=== PATIENT | female | born 1960 | race Caucasian/White ===

== ENCOUNTER 2016-07-06 23:56 | Emergency (ER) | payer OTHER ==
[~2016-07-06] VITALS: Ht 160 cm; Wt 77.8 kg
[~2016-07-06 23:56] MED LIST: B-CO1CAP3; CHOL1000; DULO60CA44 PO; FISH1CAP3; PRT/20 PO; REDPOW
[2016-07-06 23:59] VITALS: TEMP 37.5; Ht 160 cm; Wt 77.8 kg
[2016-07-07] MEDS ORDERED: HYDROmorphone INJ 1 MG/ML SYR IV STA (00:32)
[2016-07-07] MEDS ORDERED: SODIUM CHLORIDE 0.9% 1000ML 1,000 ML IV STA (00:32)
[2016-07-07] MEDS ORDERED: ONDANSETRON INJ 2 MG/ML 2 ML VIAL IV STA (00:32)
--- NOTE | 2016-07-07 00:36 | EMERGENCY ROOM VISIT NOTE ---
History Report prepared by Scribe: Kyra Coffey Under the Supervision of: Dr. Jose Enrique Castro M.D. First contact with patient: 00:22 Chief Complaint: ABDOMINAL PAIN Stated Complaint: ABD PAIN History of Present Illness The patient is a 55 year old female who presents to the Emergency Room with complaints of persistent abdominal pain for the past several days. She is accompanied by her . She rates her discomfort as a 10/10 and states she has not taken any medication for her pain yet. She reports she underwent a cholecystectomy about 1 year ago and states her current pain feels similar to her previous gallbladder attacks. She denies any black or bloody stools but does admit to some recent mild diarrhea. She also complains of a headache and nausea. She has not vomited. She denies any recent fevers or rashes. Source of History: patient Onset: past several days Position: abdomen Symptom Intensity: 10/10 Timing: other (persistent) Associated Symptoms: + diarrhea, + headache, + nausea, No fevers, No hematochezia, No melena, No rash, No vomiting Review of Systems See HPI for pertinent positives & negatives. A total of 10 systems reviewed and were otherwise negative. Past Medical & Surgical Surgical Problems: (1) History of cholecystectomy Social History Smoking Status: Never Smoker Alcohol Use: occasionally Drug Use: none Marital Status: Housing Status: lives with family Occupation Status: employed Current/Historical Medications Scheduled Ondasetron Odt (Zofran Odt), 4-8 MG SL Q6H Pantoprazole (Protonix), 20 MG PO DAILY Allergies Coded Allergies: No Known Allergies (Unverified , 07/07/16) Physical Exam Vital Signs Date Time Temp Pulse Resp B/P Pulse Ox O2 Delivery O2 Flow Rate FiO2 07/07/16 02:01 84 18 132/74 96 Room Air 07/06/16 23:59 37.5 112 20 152/119 96 Room Air Physical Exam GENERAL: Patient is uncomfortable appearing and in moderate distress. HEENT: No acute trauma, normocephalic atraumatic, mucous membranes moist, no nasal congestion, no scleral icterus. NECK: No stridor, no adenopathy, no meningismus, trachea is midline. LUNGS: No dyspnea. Clear to auscultation and equal bilaterally. No wheeze, no rhonchi. HEART: Regular rate and rhythm. No murmurs, rubs, gallops appreciated. ABDOMEN: Soft, moderate RUQ tenderness to palpation, bowel sounds positive, no masses appreciated, no peritonitis. BACK: No midline tenderness, no CVA tenderness EXTREMITIES: Normal motion all extremities, no cyanosis, no edema. NEUROLOGIC: Alert and oriented, no acute motor or sensory deficits, no focal weakness, cranial nerves grossly intact. SKIN: No rash, no jaundice, no diaphoresis. Medical Decision & Procedures ER Provider Diagnostic Interpretation: This CT scan was reviewed and interpreted by the radiologist and reviewed by myself. CT ABDOMEN & PELVIS Fluid with nondistended stomach and bowel without wall thickening or surrounding inflammation is non specific and may be normal but can also be seen with gastroenteritis in the right clinical setting. No bowel obstruction, no appendicitis or inflammatory changes of bowel. Pancreas is unremarkable. Prior cholecystectomy. No renal calculi. No hydronephrosis. No free air or free fluid. Radiologist: Dr. Austin Sanchez MD Laboratory Results 07/07/16 00:40 Red Blood Count 4.85, Mean Corpuscular Volume 82.7, Mean Corpuscular Hemoglobin 29.3, Mean Corpuscular Hemoglobin Concent 35.4, Mean Platelet Volume 9.6, Neutrophils (%) (Auto) 77.2, Lymphocytes (%) (Auto) 14.3, Monocytes (%) (Auto) 7.4, Eosinophils (%) (Auto) 0.7, Basophils (%) (Auto) 0.2, Neutrophils # (Auto) 4.49, Lymphocytes # (Auto) 0.83, Monocytes # (Auto) 0.43, Eosinophils # (Auto) 0.04, Basophils # (Auto) 0.01 07/07/16 00:40 Test 07/07/16 00:40 07/07/16 00:45 White Blood Count 5.81 K/uL (4.8-10.8) Red Blood Count 4.85 M/uL (4.2-5.4) Hemoglobin 14.2 g/dL (12.0-16.0) Hematocrit 40.1 % (37-47) Mean Corpuscular Volume 82.7 fL (80-100) Mean Corpuscular Hemoglobin 29.3 pg (25-34) Mean Corpuscular Hemoglobin Concent 35.4 g/dl (32-36) Platelet Count 320 K/uL (130-400) Mean Platelet Volume 9.6 fL (7.4-10.4) Neutrophils (%) (Auto) 77.2 % Lymphocytes (%) (Auto) 14.3 % Monocytes (%) (Auto) 7.4 % Eosinophils (%) (Auto) 0.7 % Basophils (%) (Auto) 0.2 % Neutrophils # (Auto) 4.49 K/uL (1.4-6.5) Lymphocytes # (Auto) 0.83 K/uL (1.2-3.4) Monocytes # (Auto) 0.43 K/uL (0.11-0.59) Eosinophils # (Auto) 0.04 K/uL (0-0.5) Basophils # (Auto) 0.01 K/uL (0-0.2) RDW Standard Deviation 46.2 fL (36.4-46.3) RDW Coefficient of Variation 15.3 % (11.5-14.5) Immature Granulocyte % (Auto) 0.2 % Immature Granulocyte # (Auto) 0.01 K/uL (0.00-0.02) Est Creatinine Clear Calc Drug Dose 64.7 ml/min Estimated GFR () 76.2 Estimated GFR (Non- 65.8 BUN/Creatinine Ratio 10.4 (10-20) Calcium Level 8.7 mg/dl (8.5-10.1) Total Bilirubin 1.0 mg/dl (0.2-1) Direct Bilirubin 0.2 mg/dl (0-0.2) Aspartate Amino Transf (AST/SGOT) 18 U/L (15-37) Alanine Aminotransferase (ALT/SGPT) 21 U/L (12-78) Alkaline Phosphatase 80 U/L (45-117) Total Protein 7.3 gm/dl (6.4-8.2) Albumin 3.6 gm/dl (3.4-5.0) Lipase 85 U/L (73-393) Bedside Hemoglobin 14.6 g/dl (12.0-16.0) Bedside Hematocrit 43 % (37-47) Bedside Sodium 142 mEq/L (135-144) Bedside Potassium 3.7 mEq/L (3.3-5.0) Bedside Chloride 106 mEq/L (101-112) Bedside Total CO2 24 mEq/l (24-31) Anion Gap 17.0 mmol/L (16-25) Bedside Blood Urea Nitrogen 9 mg/dl (7-18) Bedside Creatinine 0.8 mg/dl (0.6-1.3) Bedside Glucose (other) 132 mg/dl (70-99) Bedside Ionized Calcium (Vipin) 1.11 mmol/l (1.12-1.32) Laboratory results as reviewed by me. Medications Administered Medications (Trade) Dose Ordered Sig/Monse Route Start Time Stop Time Status Last Admin Dose Admin Hydromorphone HCl (Dilaudid Inj) 1 mg NOW STAT IV 07/07/16 00:32 07/07/16 00:34 DC 07/07/16 00:56 1 MG Ondansetron HCl 4 mg 4 mg NOW STAT IV 07/07/16 00:32 07/07/16 00:34 DC 07/07/16 00:56 4 MG Sodium Chloride (Nss 1000ml) 1,000 ml @ 999 mls/hr Q1H1M STAT IV 07/07/16 00:32 07/07/16 01:32 DC 07/07/16 00:55 999 MLS/HR Ondansetron HCl (ZOFRAN ODT 4MG Home Pack) 1 homepack UD ONCE PO 07/07/16 02:45 07/07/16 02:46 DC 07/07/16 02:36 1 HOMEPACK Promethazine HCl (Phenergan Tab) 25 mg NOW ONCE PO 07/07/16 03:00 07/07/16 03:01 DC 07/07/16 03:00 25 MG ED Course 0030: The patient was evaluated in room A10. A complete history and physical exam was performed. 0032: NSS 1000 ml @ 999 mls/hr IV, Zofran 4 mg IV, Dilaudid 1 mg IV. 0210: I reevaluated the patient. She is feeling much better. I discussed her results and discharge instructions and she verbalized complete understanding and agreement. 0245: Zofran 4 mg 1 homepack PO. Medical Decision Differential: Cholecystitis, Hepatic Disfunction, Gastritis/PUD, Renal Colic, Pancreatitis, ACS, Aortic Pathology, amongst other pathologies entertained. 55 yr old female with history of GB out a year ago and chronic RUQ abdominal pain. Notes worsening RUQ abdominal pain over the last 24 hours. Still normal bowel movements for her. No fevers. She has chronic pain issues and fibromyalgia and notes when pain starts one place it goes to the others thus headache and back pains today. Given RUQ TTP and acute onset felt imaging reasonable. No clear acute issues on CT other than some likely gastroenteritis. She is feeling much improved and wishing to go home. Labs are negative and she does not have a surgical abdomen. No urinary symptoms. Will send home with nausea meds. She has tramadol and other pain medications at home. Post discharge patient with another episode of vomiting. Given phenergan but prior to my re-evaluation patient wished to get home and discharged. MD Drug Monitoring Program Search Results: patient reviewed within database, see additional documentation Drug Monitoring Findings: The patient has multiple narcotic prescriptions in the past few months from [place] Physician in [email or web address]. Impression Primary Impression: Abdominal pain, acute, right upper quadrant Additional Impression: Gastroenteritis Scribe Attestation The scribe's documentation has been prepared under my direction and personally reviewed by me in its entirety. I confirm that the note above accurately reflects all work, treatment, procedures, and medical decision making performed by me. Departure Information Dispostion Home / Self-Care Prescriptions Ondasetron Odt (ZOFRAN ODT) 4 Mg Tab 4-8 MG SL Q6H for Nausea, #20 TAB Prov: Jose Enrique Castro M.D. 07/07/16 Referrals Carl Abbasi M.D. (PCP) Patient Instructions ED Gastroenteritis Viral, My [facility] Problem Qualifiers
[2016-07-07 00:54] LABS: BASO % 0.2 %; BASO ABS # 0.01 K/uL (0-0.2); COMPLETE YES; EOS % 0.7 %; HEMATOCRIT 40.1 % (37-47); IG% 0.2 %; LYMPH % 14.3 %; LYMPH ABS # 0.83 K/uL (1.2-3.4); MEAN CELL VOLUME 82.7 fL (80-100); MEAN CORPUSCULAR HEMOGLOBIN 29.3 pg (25-34); MEAN CORPUSCULAR HGB CONC 35.4 g/dl (32-36); MEAN PLATELET VOLUME 9.6 fL (7.4-10.4); MONO % 7.4 %; NEUT % 77.2 %; PLATELET COUNT 320 K/uL (130-400); RED BLOOD COUNT 4.85 M/uL (4.2-5.4); WHITE BLOOD COUNT 5.81 K/uL (4.8-10.8)
[2016-07-07 01:02] LABS: ISTAT CREATININE 0.8 mg/dl (0.6-1.3); ISTAT HEMOGLOBIN 14.6 g/dl (12.0-16.0); ISTAT IONIZED CALCIUM 1.11 mmol/l (1.12-1.32)
[2016-07-07 01:14] LABS: BUN/CREATININE RATIO 10.4 (10-20); CALCIUM 8.7 mg/dl (8.5-10.1); CREATININE 0.97 mg/dl (0.60-1.20); POTASSIUM 3.7 mmol/L (3.5-5.1)
[2016-07-07] MEDS ORDERED: OPTIRAY 320 IV PRN (01:30)
[2016-07-07 02:01] VITALS: BP 132/74; PULSE 84; O2SAT 96
[2016-07-07] MEDS ORDERED: ONDA4TAB10 SL (02:16)
[2016-07-07] MEDS ORDERED: ONDANSETRON HOME PACK 4MG OD TAB PO ONE (02:45)
[2016-07-07] MEDS ORDERED: PROMETHAZINE HCL 25 MG TAB PO ONE (03:00)
--- NOTE | 2016-07-07 07:54 | DIAGNOSTIC IMAGING REPORT ---
CT SCAN OF THE ABDOMEN AND PELVIS WITH IV CONTRAST CLINICAL HISTORY: Right upper quadrant abdominal pain. COMPARISON STUDY: No priors. TECHNIQUE: Following the IV administration of 93 cc of Optiray 320, CT scan of the abdomen and pelvis is performed from the lung bases to the proximal femora. Images are reviewed in the axial, sagittal, and coronal planes. IV contrast was administered without complication. Automated dose control exposure was utilized. CT DOSE: 376.31 mGy.cm FINDINGS: Lung bases: The heart is normal in size and there is trace pericardial effusion. The lung bases are clear noting dependent atelectasis. There is a small hiatal hernia. The distal esophagus is filled with fluid. Liver: The contrast-enhanced liver is normal in size, contour, and attenuation. There is no intrahepatic biliary ductal dilatation. The hepatic veins and portal veins are patent. Gallbladder: Surgically absent noting clips in the gallbladder fossa. Spleen: Normal in size and attenuation. Pancreas: Unremarkable. Adrenal glands: Unremarkable. Kidneys: The contrast enhanced kidneys are normal in size and without hydronephrosis. The kidneys enhance symmetrically. Abdominal vasculature: The abdominal aorta is normal in course and caliber. Bowel: The small bowel and colon are normal in course and caliber. The appendix is well-visualized and normal. Peritoneum: There is no intraperitoneal free air or abdominal ascites. There is a small fat-containing umbilical hernia. Lymphadenopathy: None. Pelvic viscera: The bladder is normal as visualized. The uterus is surgically absent. No adnexal lesion is seen. Numerous calcified phleboliths are seen in the pelvis. Skeletal structures: The skeletal structures are osteopenic. No lytic or blastic lesions are seen. IMPRESSION: 1. There are no acute infectious or inflammatory findings in the abdomen or pelvis. 2. There is a small hiatal hernia. Fluid is noted in the distal esophagus. Note that this may place the patient at risk for aspiration. 3. Additional changes as above. Electronically signed by: Konstantin Yates M.D. 07/07/2016 7:53 AM Dictated Date/Time: 07/07/2016 7:47 AM
== END 2016-07-07 03:02 | disposition home or self-care (01) ==
LOC: C.EDB 23:57 → C.EDA 07-07 03:02
DX: R10.11 Right upper quadrant pain (principal); K52.9 Noninfective gastroenteritis and colitis, unspecified; Z90.49 Acquired absence of other specified parts of digestive tract